=== PATIENT | male | born 1970 | race Caucasian/White ===

== ENCOUNTER 2017-12-01 16:38 | Emergency (ER) | payer OTHER | END 2017-12-01 18:45 | disposition home or self-care (01) | LOC: FTE 16:38 | DX: J32.9 Chronic sinusitis, unspecified (principal); I10 Essential (primary) hypertension | CPT/HCPCS: 99283; Z7502 ==

== ENCOUNTER 2018-02-18 21:37 | Emergency (ER) | payer OTHER ==
[2018-02-18 22:30] LABS: ADD MAN DIFF? NO
[2018-02-18 22:32] LABS: WHITE BLOOD COUNT 6.5 10^3/ul (4.8-10.8)
[2018-02-18 22:32] LABS: BASOPHILS % 0.3 % (0.0-2.0); EOSINOPHILS # 0.3 10^3/ul (0.0-0.5); EOSINOPHILS % 4.4 % (0.0-7.0); HEMATOCRIT 42.6 % (42.0-52.0); HEMOGLOBIN 14.5 g/dl (14.0-18.0); LYMPHOCYTES # 1.6 10^3/ul (0.8-2.9); MEAN CORPUSCULAR HEMOGLOBIN 33.8 pg (29.0-33.0); MEAN CORPUSCULAR VOLUME 99.3 fl (82.0-101.0); MEAN PLATELET VOLUME 10.5 fl (7.4-10.4); MONOCYTE # 0.5 10^3/ul (0.3-0.9); MONOCYTES % 7.2 % (0.0-11.0); NEUTROPHIL # 4.1 10^3/ul (1.6-7.5); NEUTROPHILS % 62.8 % (39.0-77.0); PLATELET COUNT 239 10^3/UL (140-415); RED BLOOD COUNT 4.29 10^6/ul (4.70-6.10); RED CELL DISTRIBUTION WIDTH 11.7 % (11.5-14.5)
[2018-02-18] MEDS: hydrALAzine 20 MG INJ IV (22:41)
[2018-02-18 22:51] LABS: PROTIME 12.2 Sec (11.9-14.9)
[2018-02-18 22:52] LABS: PARTIAL THROMBOPLASTIN TIME 28.2 Sec (25.0-35.0)
[2018-02-18 22:58] LABS: ANION GAP 12 (8-16); BLOOD UREA NITROGEN 12 mg/dl (7-20); CALCIUM 8.9 mg/dl (8.4-10.2); CARBON DIOXIDE 27 mmol/L (21-31); CHLORIDE 104 mmol/L (97-110); CREATININE 0.85 mg/dl (0.61-1.24); GLUCOSE 112 mg/dl (70-220); POTASSIUM 3.5 mmol/L (3.5-5.1); SODIUM 139 mmol/L (135-144)
== END 2018-02-19 00:06 | disposition home or self-care (01) ==
LOC: E/R 02-19 00:06
DX: I10 Essential (primary) hypertension (principal); R40.2142 Coma scale, eyes open, spontaneous, at arrival to emergency department; R40.2252 Coma scale, best verbal response, oriented, at arrival to emergency department; R40.2362 Coma scale, best motor response, obeys commands, at arrival to emergency department; R07.9 Chest pain, unspecified
CPT/HCPCS: 70450; 71045; 80048; 85025; 85610; 85730; 96374; 99285-25

== ENCOUNTER 2018-05-28 10:31 | Emergency (ER) | payer OTHER ==
[2018-05-28] MEDS: ALBUTEROL 0.083% (NEB) 2.5 MG/3 ML AMP HHN (12:07)
== END 2018-05-28 14:53 | disposition left against medical advice (07) ==
LOC: FTE 10:31
DX: J00 Acute nasopharyngitis [common cold] (principal); I10 Essential (primary) hypertension
CPT/HCPCS: 71045; 94664; 99283-25

== ENCOUNTER 2018-08-25 18:23 | Emergency (ER) | payer OTHER ==
[2018-08-25] MEDS: IPRATROPIUM (NEB) 0.5 MG/2.5 ML AMP HHN (20:21)
[2018-08-25] MEDS: ALBUTEROL 0.083% (NEB) 2.5 MG/3 ML AMP HHN (20:21)
== END 2018-08-25 21:14 | disposition home or self-care (01) ==
LOC: FTE 18:23
DX: J32.9 Chronic sinusitis, unspecified (principal); J45.901 Unspecified asthma with (acute) exacerbation; I10 Essential (primary) hypertension
CPT/HCPCS: 93005; 94664; 99283-25

== ENCOUNTER 2018-11-15 22:05 | Emergency (ER) | payer OTHER | END 2018-11-15 23:48 | disposition home or self-care (01) | LOC: E/R 22:05 | DX: J30.9 Allergic rhinitis, unspecified (principal); R40.2142 Coma scale, eyes open, spontaneous, at arrival to emergency department; R40.2252 Coma scale, best verbal response, oriented, at arrival to emergency department; R40.2362 Coma scale, best motor response, obeys commands, at arrival to emergency department; I10 Essential (primary) hypertension | CPT/HCPCS: 93005; 99283-25 ==

== ENCOUNTER 2018-11-29 05:54 | Emergency (ER) | payer OTHER ==
[2018-11-29] MEDS: ALBUTEROL 0.083% (NEB) 2.5 MG/3 ML AMP HHN (06:54)
[2018-11-29] MEDS: IBUPROFEN 600 MG TAB PO (07:45)
== END 2018-11-29 09:18 | disposition home or self-care (01) ==
LOC: FTE 09:18
DX: J06.9 Acute upper respiratory infection, unspecified (principal)
CPT/HCPCS: 71046; 94664; 99283-25